=== PATIENT | female | born 1950 | race Caucasian/White ===

== ENCOUNTER 2019-07-18 07:42 | Emergency (ER) | payer MEDICARE, OTHER ==
[~2019-07-18] VITALS: Ht 167.6 cm; Wt 86.3 kg
--- NOTE | 2019-07-18 08:33 | PHYS DOC ---
Past History Past Medical History: Anemia, Hypertension, Seizure Past Surgical History: No Surgical History Smoking: Non-smoker Alcohol Use: None Drug Use: None Adult General Chief Complaint Chief Complaint: MECHANICAL FALL HPI HPI Patient is a 69 year old female with a history of lymphedema and seizures who presents with lower back pain s/p a fall that occurred around 630AM this morning. Patient states she was sitting on a toilet when she "slid off" Patient reports her lower back fell onto the side of her bath tub during the fall. She denies LOC or any head trauma. Denies dizziness or chest pain during the episode or at this time. She is not currently on any anticoagulants. She denies numbness or tingling. Patient denies cough, fever, hematuria, or dysuria. Patient denies recent seizures and says her last seizure was "a few years ago". Patient reports some headache after fall. Review of Systems Review of Systems Constitutional: Denies fever or chills Eyes: Denies redness or eye pain HENT: Denies nasal congestion or sore throat Respiratory: Denies cough or shortness of breath Cardiovascular: Denies chest pain or palpitations GI: Denies abdominal pain, nausea, or vomiting : Denies dysuria or hematuria Musculoskeletal: Reports back pain and joint pain Integument: Denies rash or skin lesions Neurologic: Reports headache, denies focal weakness or sensory changes; denies loss of bowel/bladder Complete systems were reviewed and found to be within normal limits, except as documented in this note. Family History Family History No pertinent family history. Physical Exam Physical Exam Constitutional: Well developed, well nourished, no acute distress, non-toxic appearance HENT: Normocephalic, atraumatic, oropharynx moist, mild tenderness to palpation of occiput Eyes: PERRL, EOMI, conjunctiva normal, no discharge Neck: Normal range of motion, no tenderness, supple Cardiovascular: Heart rate normal, regular rhythm Lungs & Thorax: Bilateral breath sounds clear to auscultation, no wheezing Abdomen: Soft, no tenderness; pelvis stable and non-tender Skin: Warm, dry, no erythema, no rash Back: Tenderness with palpation of bilateral paraspinal musculature and spinous processes at the thoracolumbar junction, no CVA tenderness Extremities: No tenderness, ROM intact, pronounced non-pitting 4+ edema in her LE bilaterally Neurologic: Alert and oriented X 3, normal motor function, normal sensory function, no focal deficits noted, CN II-XII intact b/l, mild weakness in LE b/l with difficulty lifting legs towards the ceiling Psychologic: Affect normal, judgment normal Current Patient Data Vital Signs Vital Signs Date Time Temp Pulse Resp B/P (MAP) Pulse Ox O2 Delivery O2 Flow Rate FiO2 07/18/19 07:49 98.3 71 16 129/88 (102) 96 Room Air Radiology/Procedures Radiology/Procedures PROCEDURE: CT HEAD AND CERVICAL SPINE WO CT HEAD AND CERVICAL SPINE WO Date: 07/18/2019 8:18 AM Clinical Indication: Pain after falling Comparison: None. Technique: 5 mm axial tomographic images were obtained of the head without contrast. These were viewed on brain and bone windows. Noncontrast CT of the cervical spine was performed. Sagittal and coronal reformats were performed and evaluated. One or more of the following dose reduction techniques were utilized: Automated exposure control (AEC), Adjustment of mA and/or kV according to patient size, Use of iterative reconstruction technique such as ASiR, CT scan done according to ALARA and image gently/image wisely HEAD FINDINGS: Mild generalized cerebral and cerebellar volume loss. Mild nonspecific periventricular hypoattenuation, most commonly seen with chronic small vessel ischemic disease. No intra- or extra-axial mass or fluid collection. No acute hemorrhage. The ventricles are normal in size, shape, and morphology. The laguerre-white matter junction is normal. The basilar cisterns are patent. The visualized paranasal sinuses are normal. The visualized portions of the orbits and globes are normal. The mastoid air cells are clear. No aggressive osseous lesion or fracture. CERVICAL SPINE FINDINGS: The cervical spine is normally aligned. No acute fracture. No aggressive lytic or blastic osseous lesions. Mild to moderate multilevel degenerative disc space height loss. Multilevel mild spinal canal stenosis secondary to disc protrusions and marginal osteophytes. Multilevel mild and moderate neuroforaminal narrowing secondary to uncovertebral arthrosis. Multilevel mild facet arthrosis. The thyroid gland is normal. No cervical lymphadenopathy. Bilateral carotid atherosclerosis. The visualized aerodigestive tract is normal. The visualized portions of the lungs are clear. IMPRESSION: 1. No acute intracranial process. 2. No acute cervical spine fracture. Electronically signed by: Kaleb Cesar MD (07/18/2019 9:12 AM) [id number] PROCEDURE: CT LUMBAR SPINE WO CONTRAST CT LUMBAR SPINE WO CONTRAST Date: 07/18/2019 8:18 AM Indication: Pain after falling Comparison: None. Technique: Helical CT images of the lumbar spine were obtained without contrast. Coronal and sagittal reformatted images were also performed. One or more of the following dose reduction techniques were utilized: Automated exposure control (AEC), Adjustment of mA and/or kV according to patient size, Use of iterative reconstruction technique such as ASiR, CT scan done according to ALARA and image gently/image wisely. Findings: The lumbar spine is normally aligned. No acute fracture. Vertebral body heights are maintained without compression deformity. No aggressive lytic or blastic osseous lesion. Mild to moderate multilevel degenerative disc space height loss. Multilevel mild and moderate spinal canal stenosis secondary to multilevel disc bulging and facet arthrosis. Multilevel mild and moderate neuroforaminal narrowing. Multilevel mild and moderate facet arthrosis. Left nephrectomy. The visualized abdominal aorta is normal caliber. IMPRESSION: No acute osseous abnormality of the lumbar spine. Electronically signed by: Kaleb Cesar MD (07/18/2019 9:22 AM) [id number] PROCEDURE: CT THORACIC SPINE WO CONTRAST CT THORACIC SPINE WO CONTRAST 07/18/2019 8:18 AM Indication: Pain after falling Comparison: None. Technique: CT imaging of the thoracic spine was performed without contrast. Coronal and sagittal reformatted images were performed. One or more of the following dose reduction techniques were utilized: Automated exposure control (AEC), Adjustment of mA and/or kV according to patient size, Use of iterative reconstruction technique such as ASiR, CT scan done according to ALARA and image gently/image wisely. Findings: The thoracic spine is normally aligned. No acute fracture. Vertebral body heights are maintained without compression deformity. Old healed right posterior rib fractures. Multilevel mild to moderate degenerative disc height loss. No aggressive lytic or blastic osseous lesion. No high-grade spinal canal stenosis or neural foraminal narrowing. The visualized lungs are clear. No pleural effusion. The visualized thoracic aorta is normal caliber. Coronary artery atherosclerotic disease. Impression: No acute osseous abnormality of the thoracic spine. Electronically signed by: Kaleb Cesar MD (07/18/2019 9:18 AM) [id number] Course & Med Decision Making Course & Med Decision Making Pertinent Imaging studies reviewed. (See chart for details) Patient is a 69 year old female who presents with lower back pain s/p a fall t hat occurred this morning. Patient denied LOC, dizziness, or chest pain during this episode. Patient states she was sitting on the toilet and she "slid off". Denies that she was attempting to stand up from the toilet at the time. Denies head trauma. Denies chest pain, dizziness, lightheadedness, or weakness. Patient was given IM Norflex for her muscle spasms with moderate relief of her symptoms. CT Head showed no acute cranial abnormalities. CT thoracic/lumbar spine without acute fractures. Patient stable for discharge with outpatient follow-up with PCP. Discussed findings and plan with patient, who acknowledges understanding and agreement. Dragon Disclaimer Dragon Disclaimer This electronic medical record was generated, in whole or in part, using a voice recognition dictation system. Departure Departure: Impression: Primary Impression: Fall Additional Impression: Back pain Disposition: HOME, SELF-CARE Condition: STABLE Referrals: FELIX RHOADES (PCP) Patient Instructions: Back Pain, Adult, [id number], Fall Prevention and Home Safety, [id number] Scripts Sennosides/Docusate Sodium (Colace 2-in-1 Tablet) 1 Each Tablet 1 TAB PO QHS PRN for CONSTIPATION, #20 TAB 0 Refills Prov: ALICE PIMENTEL DO 07/18/19 Orphenadrine Citrate (ORPHENADRINE CITRATE) 100 Mg Tablet.er 1 TAB PO BID PRN for MUSCLE PAIN, #14 TAB 0 Refills Prov: ALICE PIMENTEL DO 07/18/19 Hydrocodone Bit/Acetaminophen (NORCO 5-325 TABLET) 1 Each Tablet 0.5 TAB PO Q6HRS PRN for PAIN, #10 TAB Prov: ALICE PIMENTEL DO 07/18/19 Problem Qualifiers Primary Impression: Fall Encounter type: initial encounter Qualified Codes: W19.XXXA - Unspecified fall, initial encounter Additional Impression: Back pain Back pain location: low back pain Chronicity: acute Back pain laterality: bilateral Sciatica presence: without sciatica Qualified Codes: M54.5 - Low back pain ALICE PIMENTEL DO Jul 18, 2019 08:33
[2019-07-18] MEDS ORDERED: ORPHENADRINE CITRATE 60 MG/2 ML VIAL. IM ONE (08:45)
--- NOTE | 2019-07-18 09:15 | RAD ---
CT HEAD AND CERVICAL SPINE WO Date: 07/18/2019 8:18 AM Clinical Indication: Pain after falling Comparison: None. Technique: 5 mm axial tomographic images were obtained of the head without contrast. These were viewed on brain and bone windows. Noncontrast CT of the cervical spine was performed. Sagittal and coronal reformats were performed and evaluated. One or more of the following dose reduction techniques were utilized: Automated exposure control (AEC), Adjustment of mA and/or kV according to patient size, Use of iterative reconstruction technique such as ASiR, CT scan done according to ALARA and image gently/image wisely HEAD FINDINGS: Mild generalized cerebral and cerebellar volume loss. Mild nonspecific periventricular hypoattenuation, most commonly seen with chronic small vessel ischemic disease. No intra- or extra-axial mass or fluid collection. No acute hemorrhage. The ventricles are normal in size, shape, and morphology. The laguerre-white matter junction is normal. The basilar cisterns are patent. The visualized paranasal sinuses are normal. The visualized portions of the orbits and globes are normal. The mastoid air cells are clear. No aggressive osseous lesion or fracture. CERVICAL SPINE FINDINGS: The cervical spine is normally aligned. No acute fracture. No aggressive lytic or blastic osseous lesions. Mild to moderate multilevel degenerative disc space height loss. Multilevel mild spinal canal stenosis secondary to disc protrusions and marginal osteophytes. Multilevel mild and moderate neuroforaminal narrowing secondary to uncovertebral arthrosis. Multilevel mild facet arthrosis. The thyroid gland is normal. No cervical lymphadenopathy. Bilateral carotid atherosclerosis. The visualized aerodigestive tract is normal. The visualized portions of the lungs are clear. IMPRESSION: 1. No acute intracranial process. 2. No acute cervical spine fracture. Electronically signed by: Kaleb Cesar MD (07/18/2019 9:12 AM) [id number]
--- NOTE | 2019-07-18 09:21 | RAD ---
CT THORACIC SPINE WO CONTRAST 07/18/2019 8:18 AM Indication: Pain after falling Comparison: None. Technique: CT imaging of the thoracic spine was performed without contrast. Coronal and sagittal reformatted images were performed. One or more of the following dose reduction techniques were utilized: Automated exposure control (AEC), Adjustment of mA and/or kV according to patient size, Use of iterative reconstruction technique such as ASiR, CT scan done according to ALARA and image gently/image wisely. Findings: The thoracic spine is normally aligned. No acute fracture. Vertebral body heights are maintained without compression deformity. Old healed right posterior rib fractures. Multilevel mild to moderate degenerative disc height loss. No aggressive lytic or blastic osseous lesion. No high-grade spinal canal stenosis or neural foraminal narrowing. The visualized lungs are clear. No pleural effusion. The visualized thoracic aorta is normal caliber. Coronary artery atherosclerotic disease. Impression: No acute osseous abnormality of the thoracic spine. Electronically signed by: Kaleb Cesar MD (07/18/2019 9:18 AM) [id number]
--- NOTE | 2019-07-18 09:25 | RAD ---
CT LUMBAR SPINE WO CONTRAST Date: 07/18/2019 8:18 AM Indication: Pain after falling Comparison: None. Technique: Helical CT images of the lumbar spine were obtained without contrast. Coronal and sagittal reformatted images were also performed. One or more of the following dose reduction techniques were utilized: Automated exposure control (AEC), Adjustment of mA and/or kV according to patient size, Use of iterative reconstruction technique such as ASiR, CT scan done according to ALARA and image gently/image wisely. Findings: The lumbar spine is normally aligned. No acute fracture. Vertebral body heights are maintained without compression deformity. No aggressive lytic or blastic osseous lesion. Mild to moderate multilevel degenerative disc space height loss. Multilevel mild and moderate spinal canal stenosis secondary to multilevel disc bulging and facet arthrosis. Multilevel mild and moderate neuroforaminal narrowing. Multilevel mild and moderate facet arthrosis. Left nephrectomy. The visualized abdominal aorta is normal caliber. IMPRESSION: No acute osseous abnormality of the lumbar spine. Electronically signed by: Kaleb Cesar MD (07/18/2019 9:22 AM) [id number]
[2019-07-18] MEDS ORDERED: ORPH-16 PO (09:46)
[2019-07-18] MEDS ORDERED: HYDR-3165 PO (09:46)
[2019-07-18] MEDS ORDERED: SENN-121 PO (09:46)
[2019-07-18 09:49] VITALS: BP 117/71
== END 2019-07-18 10:10 | disposition home or self-care (01) ==
LOC: ER 07:42
DX: M54.5 Low back pain (principal); R51 Headache; G89.11 Acute pain due to trauma; I10 Essential (primary) hypertension; Z86.2 Personal history of diseases of the blood and blood-forming organs and certain disorders involving the immune mechanism; W17.89XA Other fall from one level to another, initial encounter; Y93.89 Activity, other specified; Y92.091 Bathroom in other non-institutional residence as the place of occurrence of the external cause; Y99.8 Other external cause status
CPT/HCPCS: 70450; 72125; 72128; 72131; 96372; 99285; J2360

== ENCOUNTER 2019-11-22 11:23 | Emergency (ER) | payer MEDICARE, OTHER ==
[~2019-11-22] VITALS: Ht 167.6 cm; Wt 107.3 kg
[~2019-11-22 11:23] MED LIST: HYDR-3165 PO; ORPH-16 PO; SENN-121 PO
[2019-11-22] MEDS ORDERED: LIDOCAINE 1%/EPI 1:100,000 20 ML VIAL. IJ ONE (12:00)
--- NOTE | 2019-11-22 12:00 | PHYS DOC ---
Past History Past Medical History: Anemia, Cancer, Hypertension, Seizure Additional Past Medical Histor: kidney CA, lymphedema Past Surgical History: Cancer Surgery, Cholecystectomy, Other Smoking: Non-smoker Alcohol Use: None Drug Use: None General Adult EDM: Chief Complaint: MECHANICAL FALL HPI: HPI: Patient is a 69-year-old female who presents to the emergency department for evaluation after mechanical fall. She states that she was going to get into a taxi, when she tripped over the curb, and fell to the ground, she sustained a laceration on her forehead, and an abrasion on her nose. She denies any other injuries or painful areas. She denies any neck pain, back pain, extremity pain or injury. She is uncertain of her last tetanus. She does not think she takes any blood thinners. Review of Systems: Review of Systems: Constitutional: Denies fever or chills Eyes: Denies change in visual acuity HENT: Denies nasal congestion or sore throat Respiratory: Denies cough or shortness of breath Cardiovascular: Denies chest pain or edema GI: Denies abdominal pain, nausea, vomiting, bloody stools or diarrhea : Denies dysuria Musculoskeletal: Denies back pain or joint pain Integument: Denies rash Neurologic: Denies focal weakness or sensory changes. Reports a headache. Endocrine: Denies polyuria or polydipsia Lymphatic: Denies swollen glands Psychiatric: Denies depression or anxiety Heart Score: Risk Factors: Risk Factors: DM, Current or recent (<one month) smoker, HTN, HLP, family history of CAD, obesity. Risk Scores: Score 0 - 3: 2.5% MACE over next 6 weeks - Discharge Home Score 4 - 6: 20.3% MACE over next 6 weeks - Admit for Clinical Observation Score 7 - 10: 72.7% MACE over next 6 weeks - Early Invasive Strategies Current Medications: Current Meds: Current Medications Medications (Trade) Dose Ordered Sig/Tiana Start Time Stop Time Status Last Admin Dose Admin Diphtheria/ Pertussis/Tetanus Vacc (ADACEL TDap SYRINGE) 0.5 ml ONCE ONCE 11/22/19 12:00 11/22/19 12:01 UNV Lidocaine/ Epinephrine (Xylocaine 1%-Epi 1:100,000) 20 ml 1X ONCE 11/22/19 12:00 11/22/19 12:01 UNV Allergies: Allergies: Allergies Coded Allergies Type Severity Reaction Last Updated Verified No Known Drug Allergies 07/18/19 No Physical Exam: PE: PHYSICAL EXAM: CONSTITUTIONAL: Well developed, well nourished HEAD: normocephalic, there is a vertical laceration noted on the center of the forehead. There is a surrounding contusion. The remainder the cranium is atraumatic. EENT: PERRL, EOMI. Conjunctivae normal color, sclerae non-icteric; moist mucous membranes. There is an abrasion on the bridge of the nose. There is no septal hematoma or deformity. The remainder the facial bones are nontender. NECK: Supple, non-tender; no meningismus. There is full, painless range of motion of the cervical spine, without any focal bony midline tenderness to palpation. LUNGS: Lungs CTA, breathing even and unlabored. Normal air movement. HEART: Regular rate and rhythm, no murmur CHEST: No deformity; non-tender ABDOMEN: The abdomen is soft, and non-tender, no masses or bruits. EXTREM: Normal ROM; no deformity, no calf tenderness. Normal pulses palpable in all extremities. There is severe bilateral pedal edema. Hips and pelvis are nontender. SKIN: No rash; no diaphoresis NEURO: Alert; normal speech and cognition; CN's grossly intact; strength grossly intact without focal deficit. BACK: No CVA TTP. There is no bony tenderness to palpation of the thoracic or lumbar spine. Current Patient Data: Vital Signs: Vital Signs Date Time Temp Pulse Resp B/P (MAP) Pulse Ox O2 Delivery O2 Flow Rate FiO2 11/22/19 11:23 98.2 81 18 116/54 (74) 96 Room Air EKG: EKG: [] Radiology/Procedures: Radiology/Procedures: PROCEDURE: CT HEAD WO CONTRAST STUDY: CT head without contrast INDICATION: Fall. Trauma to the head. COMPARISON: 07/18/2019 TECHNIQUE: Axial CT imaging through the head without the use of intravenous contrast. Sagittal and coronal reformats were obtained. One or more of the following individualized dose reduction techniques were utilized for this examination: 1. Automated exposure control 2. Adjustment of the mA and/or kV according to patient size 3. Use of iterative reconstruction technique. FINDINGS: No acute intracranial hemorrhage. No mass effect or midline shift. Unchanged extent of ventriculomegaly noting differences in slice orientation from the comparison. Redemonstration of a remote left cerebellar hemisphere worsted winder infarct and white matter findings typical of chronic microvascular ischemic change. Right midline frontal scalp contusion. Contusive injury extends downward along the nasal bridge. No depressed calvarial fracture. The visualized orbits are unremarkable. IMPRESSION: 1. Frontal scalp contusion extending downwards along the nose. No associated calvarial fracture or acute intracranial hemorrhage. 2. Unchanged chronic/senescent findings as above.[] Course & Med Decision Making: Course & Med Decision Making Pertinent imaging studies reviewed. (See chart for details) [] LACERATION REPAIR PROCEDURE NOTE: The forehead four centimeter laceration was irrigated copiously with normal saline, anesthetized with 1% lidocaine with epinephrine, prepped with Betadine, and draped with sterile drapes. Sterile technique was used. The wound was closed with #7 running 4-0 nylon sutures. Good epithelial approximation was obtained. The patient tolerated the procedure well. Dragon Disclaimer: Dragon Disclaimer: This electronic medical record was generated, in whole or in part, using a voice recognition dictation system. Departure Departure: Impression: Primary Impression: Accidental fall Additional Impressions: Facial laceration Head injury Disposition: 01 HOME/RESIDENCE PRIOR TO ADM Condition: STABLE Referrals: MACK LEYVA (PCP) Patient Instructions: Facial Laceration, Laceration Care, Adult Additional Instructions: Sutures should be removed in 7 days. Please contact your PCP to arrange suture removal. Justification of Admission: Justification of Admission: Justification of Admission Dx: N/A DENILSON HUSSEIN MD Nov 22, 2019 12:00
[2019-11-22 12:26] VITALS: BP 110/63
[2019-11-22] MEDS ORDERED: DIPH,PERTUSS(ACELL),TET VAC/PF 0.5 ML SYRINGE. VAX IM ONE (12:30)
[2019-11-22] MEDS ORDERED: ACETAMINOPHEN 500 MG TABLET PO ONE (12:30)
[2019-11-22] MEDS ORDERED: BACITRACIN ZINC TOPICAL OINT PACKET. TP ONE (12:45)
--- NOTE | 2019-11-22 12:47 | RAD ---
STUDY: CT head without contrast INDICATION: Fall. Trauma to the head. COMPARISON: 07/18/2019 TECHNIQUE: Axial CT imaging through the head without the use of intravenous contrast. Sagittal and coronal reformats were obtained. One or more of the following individualized dose reduction techniques were utilized for this examination: 1. Automated exposure control 2. Adjustment of the mA and/or kV according to patient size 3. Use of iterative reconstruction technique. FINDINGS: No acute intracranial hemorrhage. No mass effect or midline shift. Unchanged extent of ventriculomegaly noting differences in slice orientation from the comparison. Redemonstration of a remote left cerebellar hemisphere international trade compliance manager infarct and white matter findings typical of chronic microvascular ischemic change. Right midline frontal scalp contusion. Contusive injury extends downward along the nasal bridge. No depressed calvarial fracture. The visualized orbits are unremarkable. IMPRESSION: 1. Frontal scalp contusion extending downwards along the nose. No associated calvarial fracture or acute intracranial hemorrhage. 2. Unchanged chronic/senescent findings as above. Electronically signed by: RAFIQ BELTRAN MD (11/22/2019 12:43 PM) [id number]
== END 2019-11-22 13:18 | disposition home or self-care (01) ==
LOC: ER 11:23
DX: S01.81XA Laceration without foreign body of other part of head, initial encounter (principal); I10 Essential (primary) hypertension; Z86.2 Personal history of diseases of the blood and blood-forming organs and certain disorders involving the immune mechanism; W18.09XA Striking against other object with subsequent fall, initial encounter; Y93.89 Activity, other specified; Y92.89 Other specified places as the place of occurrence of the external cause; Y99.8 Other external cause status
CPT/HCPCS: 12013; 70450; 90471; 90715; 99284

== ENCOUNTER → 2020-08-29 | Outpatient (CLI) | payer OTHER ==
--- NOTE | 2020-08-31 19:51 | RAD ---
DATE: 08/29/2020 EXAM: DIGITAL SCREEN BILAT W/CAD HISTORY: Screening COMPARISON: 07/21/2018, 04/04/2017 This study was interpreted with the benefit of Computerized Aided Detection (CAD). Breast Density: HETERO The breast parenchyma is heterogenously dense, which could reduce sensitivity of mammography. Breast parenchyma level C. FINDINGS: No suspicious mass, calcifications, or architectural distortion. IMPRESSION: No evidence of malignancy. BI-RADS CATEGORY: 1 NEGATIVE RECOMMENDED FOLLOW-UP: 12M 12 MONTH FOLLOW-UP PQRS compliance statement: Patient information was entered into a reminder system with a target due date for the next mammogram. Mammography is a sensitive method for finding small breast cancers, but it does not detect them all and is not a substitute for careful clinical examination. A negative mammogram does not negate a clinically suspicious finding and should not result in delay in biopsying a clinically suspicious abnormality. "Our facility is accredited by the [employer] Mammography Program."
== END ==
LOC: MAMMO 09:02
PROVIDERS: ATTEND Family Medicine
DX: Z12.31 Encounter for screening mammogram for malignant neoplasm of breast (principal)
CPT/HCPCS: 77067

== ENCOUNTER → 2020-10-05 | Emergency (ER) | payer OTHER ==
[~2020-10-05] VITALS: Ht 167.6 cm; Wt 107.3 kg
[2020-10-05 10:05] VITALS: BP 123/69
--- NOTE | 2020-10-05 10:39 | RAD ---
EXAM: Head and cervical spine CT without contrast. HISTORY: Fall. TECHNIQUE: Computed tomographic images of the head and cervical spine were obtained without contrast. *One or more of the following individualized dose reduction techniques were utilized for this examina tion: 1. Automated exposure control. 2. Adjustment of the mA and/or kV according to patient size. 3. Use of iterative reconstruction technique. COMPARISON: 11/22/2019. FINDINGS: Head: There is no hemorrhage. There is no mass effect or midline shift. There is stable ventricular e nlargement. There is decreased attenuation within the cerebral white matter likely due to chronic sma ll vessel disease. There is cerebral and cerebellar volume loss. The visualized portions the orbits, paranasal sinuses mastoid air cells are unremarkable. There is no suspicious calvarial lesion. Cervical spine: There is mild multilevel listhesis and slight reversal cervical lordosis. There is de generative endplate remodeling with disc space narrowing and osteophytosis at C5-C6 and C6-C7. There is multilevel facet arthropathy. There are multiple disc bulges and small disc protrusions. The combi nation of degenerative changes results in mild right foraminal stenosis at C3-C4, severe right greate r than left foraminal and mild central canal stenosis at C4-C5, and moderate right and severe left fo raminal stenosis at C5-C6. IMPRESSION: 1. No acute intracranial finding or evidence of acute cervical spine trauma. 2. Stable moderate ventricular enlargement. This appears to be appropriate for the degree of cerebral atrophy. There are superimposed white changes likely due to chronic small vessel disease. 3. Degenerative change throughout the cervical spine, resulting in significant stenosis at the aforem entioned levels. Electronically signed by: Kailey Rivera MD (10/05/2020 10:37 AM) [id number]
--- NOTE | 2020-10-05 10:51 | RAD ---
EXAM: Left hand, 3 views. HISTORY: Fall. COMPARISON: None. FINDINGS: 3 views of the left hand are obtained. There is no acute fracture, dislocation or subluxati on. There is mild degenerative spurring involving the first interphalangeal joint and first carpometa carpal joint. IMPRESSION: 1. No acute osseous finding. 2. 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 Electronically signed by: Kailey Rivera MD (10/05/2020 10:48 AM) [id number]
--- NOTE | 2020-10-05 10:51 | RAD ---
EXAM: Left elbow, 3 views. HISTORY: Pain. COMPARISON: None. FINDINGS: 3 views of the left elbow are obtained. There is no fracture, dislocation or subluxation. T here is no convincing elbow effusion. IMPRESSION: No acute osseous finding. Electronically signed by: Kailey Rivera MD (10/05/2020 10:49 AM) [id number]
--- NOTE | 2020-10-05 10:53 | RAD ---
EXAM: Chest and right ribs, 4 views. HISTORY: Fall. Pain. COMPARISON: None. FINDINGS: A frontal view of the chest and 3 views of the right ribs are obtained. There is no infiltr ate, pleural effusion or pneumothorax. The heart is normal in size. There is internal fixation of a p roximal right humeral fracture. There are multiple chronic appearing bilateral rib fractures. There m ay be a subacute fracture involving the lateral right ninth rib. There are surgical clips within the upper abdomen. There is gaseous distention of the colon, partially included on the [id number]. The re is a suspected mild chronic compression deformity involving T11 IMPRESSION: 1. No acute pulmonary finding. 2. Multiple chronic appearing bilateral rib fractures. There may be a subacute fracture involving the lateral right ninth rib. Correlate for pain in this location. 3. Gaseous distention of the colon, partially included on the [id number]. Electronically signed by: Kailey Rivera MD (10/05/2020 10:51 AM) [id number]
--- NOTE | 2020-10-05 10:56 | PHYS DOC ---
Past History Past Medical History: Anemia, Cancer, Hypertension, Seizure Additional Past Medical Histor: kidney CA, lymphedema Past Surgical History: Cancer Surgery, Cholecystectomy, Other Smoking: Non-smoker Alcohol Use: None Drug Use: None General Adult EDM: Chief Complaint: UPPER EXTREMITY PAIN HPI: HPI: Patient is a 70-year-old female who presented to ER for evaluation left hand pain, left elbow pain, right-sided rib pain, headache after she fell in the bathroom this morning. Patient ambulated around with a walker, she went to the bathroom to this morning so she can take a shower, somehow she tripped and fell down, hit her head on the wall and banged her elbow and left hand on the floor, also complained of right sided chest pain. Patient denies any back pain, no lower extremity pain, denies any hip pain or pelvic pain. Review of Systems: Review of Systems: Constitutional: Denies fever or chills Eyes: Denies change in visual acuity HENT: Denies nasal congestion or sore throat Respiratory: Denies cough or shortness of breath Cardiovascular: Positive for right-sided chest wall pain, no edema. GI: Denies abdominal pain, nausea, vomiting, bloody stools or diarrhea : Denies dysuria Musculoskeletal: Denies any back pain, positive for left hand pain, left elbow pain. Integument: Denies rash Neurologic: Positive for headache, no focal weakness or sensory changes Endocrine: Denies polyuria or polydipsia Lymphatic: Denies swollen glands Psychiatric: Denies depression or anxiety Allergies: Allergies: Allergies Coded Allergies Type Severity Reaction Last Updated Verified No Known Drug Allergies 07/18/19 No Physical Exam: PE: Constitutional: Well developed, well nourished, no acute distress, non-toxic appearance. [] HENT: Normocephalic, there is some superficial skin contusion on left temporal area., bilateral external ears normal, oropharynx moist, no oral exudates, nose normal. [] Eyes: PERRLA, EOMI, conjunctiva normal, no discharge. [] Neck: Normal range of motion, no tenderness, supple, no stridor. [] Cardiovascular:Heart rate regular rhythm, no murmur [] Lungs & Thorax: Bilateral breath sounds clear to auscultation , no crepitus, right-sided rib pain at the mid lateral of her right chest. Abdomen: Bowel sounds normal, soft, no tenderness, no masses, no pulsatile masses. [] Skin: Warm, dry, no erythema, no rash. [] Back: No tenderness, no CVA tenderness. [] Extremities: There is some contusion and pain at the left fourth and fifth metacarpal bone. There is no snuffbox tenderness to palpation, there is some skin contusion to the left elbow, left elbow did not deform, nontender to palpation, there is full range of motion of the left elbow. Neurologic: Alert and oriented X 3, normal motor function, normal sensory function, no focal deficits noted. [] Psychologic: Affect normal, judgement normal, mood normal. [] Current Patient Data: Vital Signs: Vital Signs Date Time Temp Pulse Resp B/P (MAP) Pulse Ox O2 Delivery O2 Flow Rate FiO2 10/05/20 10:05 97.9 70 16 123/69 (87) 99 Room Air EKG: EKG: [] Radiology/Procedures: Radiology/Procedures: [][place] [address] IMAGING REPORT Signed PATIENT: SONIA WOLF ACCOUNT: [id number] : 1950 LOCATION: ER AGE: 70 SEX: F EXAM STATUS: REG ER ORD. PHYSICIAN: SUNG TARANGO DO REASON: fell, right side ribs pain PROCEDURE: RIBS RIGHT AND PA CHEST EXAM: Chest and right ribs, 4 views. HISTORY: Fall. Pain. COMPARISON: None. FINDINGS: A frontal view of the chest and 3 views of the right ribs are obtained. There is no infiltrate, pleural effusion or pneumothorax. The heart is normal in size. There is internal fixation of a proximal right humeral fracture. There are multiple chronic appearing bilateral rib fractures. There may be a subacute fracture involving the lateral right ninth rib. There are rosario rgical clips within the upper abdomen. There is gaseous distention of the colon, partially included on the [id number]. There is a suspected mild chronic compression deformity involving T11 IMPRESSION: 1. No acute pulmonary finding. 2. Multiple chronic appearing bilateral rib fractures. There may be a subacute fracture involving the lateral right ninth rib. Correlate for pain in this location. 3. Gaseous distention of the colon, partially included on the [id number]. Electronically signed by: Kailey Murphy MD (10/05/2020 10:51 AM) [id number] DICTATED AND SIGNED BY: KAILEY MURPHY MD DATE: 10/05/20 1049 CC: SUNG TARANGO DO; MACK LEYVA ~MTH0 [address] [place] [address] IMAGING REPORT Signed PATIENT: SONIA WOLF ACCOUNT: [id number] : 1950 LOCATION: ER AGE: 70 SEX: F EXAM STATUS: REG ER ORD. PHYSICIAN: SUNG TARANGO DO REASON: fell in the bathroom, head and neck pain PROCEDURE: CT HEAD AND CERVICAL SPINE WO EXAM: Head and cervical spine CT without contrast. HISTORY: Fall. TECHNIQUE: Computed tomographic images of the head and cervical spine were obtained without contrast. *One or more of the following individualized dose reduction techniques were utilized for this examination: 1. Automated exposure control. 2. Adjustment of the mA and/or kV according to patient size. 3. Use of iterative reconstruction technique. COMPARISON: 11/22/2019. FINDINGS: Head: There is no hemorrhage. There is no mass effect or midline shift. There is stable ventricular enlargement. There is decreased attenuation within the cerebral white matter likely due to chronic small vessel disease. There is cerebral and cerebellar volume loss. The visualized portions the orbits, paranasal sinuses mastoid air cells are unremarkable. There is no suspicious calvarial lesion. Cervical spine: There is mild multilevel listhesis and slight reversal cervical lordosis. There is degenerative endplate remodeling with disc space narrowing and osteophytosis at C5-C6 and C6-C7. There is multilevel facet arthropathy. There are multiple disc bulges and small disc protrusions. The combination of degenerative changes results in mild right foraminal stenosis at C3-C4, severe right greater than left foraminal and mild central canal stenosis at C4-C5, and moderate right and severe left foraminal stenosis at C5-C6. IMPRESSION: 1. No acute intracranial finding or evidence of acute cervical spine trauma. 2. Stable moderate ventricular enlargement. This appears to be appropriate for t he degree of cerebral atrophy. There are superimposed white changes likely due to chronic small vessel disease. 3. Degenerative change throughout the cervical spine, resulting in significant stenosis at the aforementioned levels. Electronically signed by: Kailey Murphy MD (10/05/2020 10:37 AM) [id number] DICTATED AND SIGNED BY: KAILEY MURPHY MD DATE: 10/05/20 1034 CC: SUNG TARANGO DO; AUTUMN,MACK ~[facility]0 [address] [place] [address] IMAGING REPORT Signed PATIENT: SONIA WOLF ACCOUNT: [id number] : 1950 LOCATION: ER AGE: 70 SEX: F EXAM STATUS: REG ER ORD. PHYSICIAN: SUNG TARANGO DO REASON: fell, left elbow injury PROCEDURE: ELBOW LEFT 3V EXAM: Left elbow, 3 views. HISTORY: Pain. COMPARISON: None. FINDINGS: 3 views of the left elbow are obtained. There is no fracture, dislocation or subluxation. There is no convincing elbow effusion. IMPRESSION: No acute osseous finding. Electronically signed by: Kailey Murphy MD (10/05/2020 10:49 AM) [id number] DICTATED AND SIGNED BY: KAILEY MURPHY MD DATE: 10/05/20 104 CC: SUNG TARANGO DO; MACK LEYVA ~[facility]0 0 [facility] [address] [place] [id number] IMAGING REPORT Signed PATIENT: SONIA WOLF ACCOUNT: [id number] : 1950 LOCATION: ER AGE: 70 SEX: F EXAM STATUS: REG ER ORD. PHYSICIAN: SUNG TARANGO DO REASON: fell, left hand injury PROCEDURE: HAND LEFT 3V EXAM: Left hand, 3 views. HISTORY: Fall. COMPARISON: None. FINDINGS: 3 views of the left hand are obtained. There is no acute fracture, dislocation or subluxation. There is mild degenerative spurring involving the first interphalangeal joint and first carpometacarpal joint. IMPRESSION: 1. No acute osseous finding. 2. Mild first interphalangeal joint and first carpometacarpal joint osteo arthritis. Electronically signed by: Kailey Murphy MD (10/05/2020 10:48 AM) [id number] DICTATED AND SIGNED BY: KAILEY MURPHY MD DATE: 10/05/20 1047 CC: SUNG TARANGO DO; MACK LEYVA ~MTH0 0 Heart Score: C/O Chest Pain: N/A Risk Factors: Risk Factors: DM, Current or recent (<one month) smoker, HTN, HLP, family history of CAD, obesity. Risk Scores: Score 0 - 3: 2.5% MACE over next 6 weeks - Discharge Home Score 4 - 6: 20.3% MACE over next 6 weeks - Admit for Clinical Observation Score 7 - 10: 72.7% MACE over next 6 weeks - Early Invasive Strategies Course & Med Decision Making: Course & Med Decision Making Pertinent Labs and Imaging studies reviewed. (See chart for details) Patient is a 70-year-old female who presented to ER for evaluation of head injury, right-sided chest injury, left hand pain, left elbow pain after she fell in the bathroom this morning. CT scan of head and C-spine did not show any acute problem. X-ray her left hand and left elbow did not show any acute problem. X-ray of the chest show a fracture of her right ninth rib. No pneumothorax. Patient was discharged in stable condition Dragon Disclaimer: Noah Disclaimer: This electronic medical record was generated, in whole or in part, using a voice recognition dictation system. Departure Departure: Impression: Primary Impression: Fracture of rib of right side Additional Impressions: Head injury Contusion of hand, left Disposition: 01 HOME / SELF CARE / HOMELESS Condition: STABLE Referrals: MACK LEYVA (PCP) please call your family physician for follow up this week. Patient Instructions: Hand Contusion, Head Injury, Adult, Rib Fracture Additional Instructions: Thank you for visiting our Emergency Department. We appreciate you trusting us with your care. If any additional problems come up don't hesitate to return to visit us. Please follow up with your primary care provider so they can plan additional care if needed and know about the problem that you had. If symptoms worsen come back to the Emergency Department. Any concerning symptoms that start such as chest pain, shortness of air, weakness or numbness on one side of the body, running high fevers or any other concerning symptoms return to the ER. SUNG TARANGO DO October 05, 2020 10:56
== END | disposition home or self-care (01) ==
LOC: ER 09:45
DX: S22.31XA Fracture of one rib, right side, initial encounter for closed fracture (principal); S00.83XA Contusion of other part of head, initial encounter; S50.02XA Contusion of left elbow, initial encounter; S60.042A Contusion of left ring finger without damage to nail, initial encounter; S60.052A Contusion of left little finger without damage to nail, initial encounter; I10 Essential (primary) hypertension; Z86.2 Personal history of diseases of the blood and blood-forming organs and certain disorders involving the immune mechanism; W01.0XXA Fall on same level from slipping, tripping and stumbling without subsequent striking against object, initial encounter; Y93.89 Activity, other specified; Y92.89 Other specified places as the place of occurrence of the external cause; Y99.8 Other external cause status
CPT/HCPCS: 70450; 71101; 72125; 73080; 73130; 99285-25